=== PATIENT | male | born 1990 | race Two or more races ===

== ENCOUNTER 2022-04-13 13:11 | Outpatient (CLI) | payer OTHER ==
[2022-04-13 13:47] VITALS: BP 130/90
--- NOTE | 2022-04-13 13:47 | SLEEP CARE CONSULTATION ---
Information from patient questionnaire entered by Nancy Mujica. I have reviewed and concur with the information entered by Nancy Mujica. This document represents the service I personally performed and the decisions made by me, Meredith Evans ARNP. History of Present Illness Service Date and Time: 04/13/2022 1311 Reason for Visit: New patient Chief Complaint: reports: Unrefreshed sleep, Snoring, Excessive daytime sleepiness, Observed pauses in breathing, Frequent awakenings at night Date of Onset: 4YRS Usual bedtime: 0900 Time it takes to fall asleep: 10MIN Snores at night: Yes Observed to quit breathing while asleep: Yes Sleeps alone due to snoring: No Number of times waking at night: 5 Reasons for waking at night: reports: Snoring, Other (UNKNOWN REASONS). denies: Choking, Gasping for air Toss, Turn, or Twitch while sleeping: Yes (his girlfriend tells him he moves a lot) Recalls having dreams: No Usually gets out of bed at: 0610; weekends 0800 Feels refreshed in the morning: No Morning headache: No Sleepy or fatigued during the day: Yes Ever fallen asleep while driving: No Takes day naps: No Dreams during day naps: No Prior sleep studies: No Additional HPI information: I had the pleasure of seeing LAW SILVERIO today regarding the possibility of him having a sleep disorder. His current complaints are snoring and observed pauses in breathing. He states his current girlfriend is telling him that he snores loudly and is stopping breathing when sleeping. He is waking himself up with the snoring as well. He tried to get tested 2 years ago [place] tested. His girlfriend has heard gasping or other noises coming from him as he sleeps. She tells him he moves a lot but he states mostly he wakes up on his back where he went to sleep. - Parasomnia Symptoms Ever been unable to move upon waking from sleep: No Walks in sleep: No Talks in sleep: No Ever acted out dreams in sleep: No Ever felt weak in the knees when startled or emotional: No Bothered by creepy, crawly, restless sensations in legs: No Problems with memory or concentration: Yes (both) Subjective Initial [place] Sleepiness Scale score: 13 (04/10/22) Past Medical History Past Medical History: reports: Other (LOW BACK PAIN ) Social History The patient's occupation is a AM. Patient is Single and lives in . Have you smoked in the past 12 months: Yes Cigarettes per day (20/pack): 20 (WEEKLY ) Years of smokin Quit date: 12/2021 Smoking Pack Years: 12.0 Alcohol use: Yes Alcohol amount and frequency: 2-3 DRINKS ONLY ON WEEKENDS Caffeine use: No Family History Family history of sleep disordered breathing: Yes Family Hx Sleep Apnea: Father: Snoring, Sleep apnea - Untreated Allergies and Home Medications Known drug allergies: No Drug allergies reviewed: Yes (NKDA) Home medication list reviewed: Yes Allergy and home medication list: Medications: Tizanidine, prn Review of Systems Weight gain over past 5 years: 25 Cardiovascular: denies: high blood pressure Gastrointestinal: denies: heartburn Neurological: denies: headaches, head trauma Psychiatric: denies: Attention Deficit Hyperactivity, anxiety, depression Ear/Nose/Throat: reports: wisdom teeth removed. denies: injury to nose, tonsillectomy Endocrine: denies: thyroid disease Musculoskeletal: reports: back pain Physical Exam Vital signs obtained and entered by: NANCY Almaraz MA Blood Pressure: 130/90 (LEFT ARM) Cuff size: regular Heart Rate: 73 O2 Saturation: 96 Height: 5 ft 9 in Weight: 260 lb 6.4 oz Weight change since last visit: Body Mass Index: 38.4 BMI Classification: Obese Neck circumference: 19 Mouth and throat: normal Soft palate: normal Hard palate: normal Uvula: normal Uvula visualization: 100% Mallampati Class I Tongue: enlarged in size with teeth kelly on lateral edges Tonsils: small Neck: normal w/o lymphadenopathy or thyromegaly Heart: regular rate and rhythm Lungs: clear bilaterally Impression and Plan 1. Suspected Obstructive Sleep Apnea-Hypopnea Syndrome, as suggested by a history of loud and irregular snoring, observed cessation of breath while a sleep, gasping or choking in sleep, frequent awakening during the night, unrefreshed sleep, cognitive impairment, and excessive daytime sleepiness. Narrow oropharynx and obesity are common predisposing factors for obstructive sleep apnea-hypopnea syndrome. I recommend proceeding to polysomnography to confirm the diagnosis and to assess severity. If the patient has significant sleep disordered breathing, a manual CPAP titration study will also be performed to find the optimal treatment pressure. I informed the patient of what the sleep studies involve and after some discussion, obtained agreement to proceed. The pathophysiology of obstructive sleep apnea-hypopnea syndrome was discussed with the patient and health risks of cardiovascular and cerebrovascular disease if not treated. Risks of drowsy driving discussed in detail and patient advised to avoid long distance driving and to puller through at the first sign of drowsiness. Patient agreed to plan. * Schedule polysomnography * Avoid long distance driving or driving when feeling sleepy. * Avoid alcohol, sedative and muscle relaxant around bedtime. * Attempt to lose weight. * Review instructions provided by trained office staff on how to prepare for the sleep study. * Return for follow-up after sleep study completed. Counseling Topics: Weight loss health impact Visit Type: In Office Time Spent with Patient (minutes): 30 Provider Statement: I spent 100% of the Face to Face Visit with the patient with greater than 50% spent counseling the patient and coordination of care.
== END 2022-04-13 13:12 | disposition home or self-care (01) ==
LOC: SC 13:11
PROVIDERS: ATTEND Nurse Practitioner Family
DX: R06.83 Snoring (principal); R06.81 Apnea, not elsewhere classified; G47.8 Other sleep disorders; R41.89 Other symptoms and signs involving cognitive functions and awareness; G47.10 Hypersomnia, unspecified; E66.9 Obesity, unspecified; Z68.38 Body mass index [BMI] 38.0-38.9, adult
CPT/HCPCS: 99203; 99212

== ENCOUNTER 2022-05-14 19:12 | Outpatient (CLI) | payer OTHER | END 2022-05-14 19:13 | disposition home or self-care (01) | LOC: SC 19:12 | PROVIDERS: ATTEND Nurse Practitioner Family | DX: G47.33 Obstructive sleep apnea (adult) (pediatric) (principal) | CPT/HCPCS: 95810 ==

== ENCOUNTER 2022-05-22 15:45 | Outpatient (CLI) | payer OTHER ==
[2022-05-22 16:21] VITALS: BP 136/82
--- NOTE | 2022-05-22 16:21 | SLEEP CARE CONSULTATION ---
Information from patient questionnaire entered by Evelyne Mujica. I have reviewed and concur with the information entered by Evelyne Mujica. This document represents the service I personally performed and the decisions made by , Meredith Evans ARNP. History of Present Illness Service Date and Time: 05/22/2022 1545 Initial [place] Sleepiness Scale score: 13 (04/10/22) Current [place] Sleepiness Scale score: 10 (05/22/22) Additional HPI information: LAW SILVERIO returns for follow up and results of the recently performed polysomnography. I explained the pathophysiology behind obstructive sleep apnea. We then spent quite a bit of time discussing different treatment options. For mild obstructive sleep apnea, surgery and oral appliance are alternatives to nasal CPAP therapy but in moderate or severe cases, nasal CPAP is the most effective and reliable treatment. Because apnea is primarily in supine position, then positional management therapy could be effective. Methods discussed such as positioning with pillows to prevent supine sleep. I reviewed the impact of weight changes on sleep apnea and strongly recommended losing weight. After some discussion, the patient opted to go with the nasal CPAP therapy. Nasal autoCPAP set at 4-15 cmH20 will be ordered with rationale explained. A manual titration study will be ordered if unable to find optimal pressure with office adjustments. I explained how CPAP machine works and what to expect when using the machine. Using CPAP every night in order to get used to it was emphasized. Patient advised to put CPAP mask on before getting into bed so as not to fall asleep without CPAP. To assist acclimation to CPAP use, it could also be used for a short time during day while reading or watching TV. The patient was instructed to call the CPAP supplier to discuss any mechanical problem that may occur. If the mask given is uncomfortable or is difficult to keep on through the night even with adjustment, contact the CPAP supplier as many will replace with another mask style if notified before 30 days. If snoring or perceives is not getting enough air or too much air from the machine, notify this office. Patient counseled not drink alcohol less than 4 hours before bedtime as it can increase snoring and apnea. Patient was cautioned about risks of drowsy driving until sleepiness symptoms resolve. Sleep Study - Results Type of Sleep Study: Polysomnography (COMPLETED 05/14/22) Prior sleep studies: No Polysomnography/Home Sleep Study results: IMPRESSION: The quality of the study is good. The patient had reduced sleep efficiency due to a prolonged awakening in the middle of the night. The sleep architecture was abnormal for sleep fragmentation and lack of REM sleep. Respiratory monitoring showed moderate obstructive sleep apnea- hypopnea (AHI = 17.9) associated with frequent arousals, oxyhemoglobin desaturation and mild hypoxia (aravind oxygen saturation of 80%). The respiratory events occurred mainly during darvin (supine AHI = 21.9; non-supine = 10.57). Snore was loud in intensity. There was no significant periodic leg movement of sleep. Cardiac rhythm was normal sinus rhythm without significant arrhythmia. No abnormal behavior (parasomnia) observed during the night. Allergies and Home Medications Drug allergies reviewed: Yes (NKDA) Home medication list reviewed: Yes (no changes) Review of Systems Review of systems same as previous: Yes (no changes) Physical Exam Vital signs obtained and entered by: EVELYNE Almaraz MA Blood Pressure: 136/82 (LEFT ARM) Cuff size: regular Heart Rate: 81 O2 Saturation: 96 Height: 5 ft 9 in Weight: 260 lb 6.4 oz Body Mass Index: 38.4 BMI Classification: Obese Impression and Plan 1. Obstructive Sleep Apnea-Hypopnea Syndrome, moderate, with lowest oxygen saturation of 80%. Obviously this is the cause of the patients symptoms of unrefreshed sleep, and excessive daytime sleepiness. As mentioned above, the patient will be started on nasal autoCPAP therapy with pressure set at 4-15 cmH2 O. Compliance guidelines also reviewed. A copy of compliance guidelines will be given for reference at check out. Because the apnea is more severe supine, I instructed to avoid sleeping supine using pillow positioning until able to start CPAP use. * Nasal auto CPAP therapy, pressure at 4-15 cm H2O. * Attempt to lose weight. * Avoid alcohol consumption near bedtime. * Avoid supine sleep until using CPAP. * The patient is again cautioned about driving until sleepiness completely resolves. * Return one month after CPAP obtained. I will assess response to therapy and compliance at that time. Counseling Topics: Weight loss health impact Visit Type: In Office Time Spent with Patient (minutes): 21 Provider Statement: I spent 100% of the Face to Face Visit with the patient with greater than 50% spent counseling the patient and coordination of care.
== END 2022-05-22 15:46 | disposition home or self-care (01) ==
LOC: SC 15:45
PROVIDERS: ATTEND Nurse Practitioner Family
DX: G47.33 Obstructive sleep apnea (adult) (pediatric) (principal); E66.9 Obesity, unspecified; Z68.38 Body mass index [BMI] 38.0-38.9, adult
CPT/HCPCS: 99212; 99213

== ENCOUNTER 2022-09-04 12:54 | Outpatient (CLI) | payer OTHER ==
--- NOTE | 2022-09-04 13:23 | Sleep Patient Instructions ---
Sleep Center Visit Summary - Patient Visit Information Reason for Visit: First compliance follow up for CPAP therapy - Patient Instructions Additional Instructions: You were here for follow up of CPAP therapy. You will be continue on CPAP therapy with pressure changed to 8-11 cmH2O. Please let us know if the pressure change is uncomfortable and we can make further adjustments of the pressure. You should follow up with sleep care in 1-2 months. You may contact us sooner for any questions or concerns. - Clinic Information Contact: [facility] [address] [place] [address] [email or web address] T: [phone]
[2022-09-04 13:27] VITALS: BP 132/90
--- NOTE | 2022-09-04 13:27 | SLEEP CARE CONSULTATION ---
Information from patient questionnaire entered by Evelyne Mujica. I have reviewed and concur with the information entered by Evelyne Mujica. This document represents the service I personally performed and the decisions made by me, Meredith Evans ARNP. History of Present Illness Service Date and Time: 09/04/2022 1254 Previous diagnosis: Moderate, Obstructive Sleep Apnea-Hypopnea Syndrome AHI: 17.9 (in 05/2022) Reason for follow up: first compliance Equipment type: CPAP (ResMed Airsense 11, s/u 05/2022) Equipment obtained from: Other ([facility], got initial supplies) Mask style: Full face Mask brand: Respironics ([place] View) Backup mask available: Yes (other mask) Last cushion change: 1 month Prior sleep studies: No Type of Sleep Study: Polysomnography (COMPLETED 05/14/22) HPI additional information: LAW SILVERIO was diagnosed to have moderate, AHI 17.9, obstructive sleep apnea-hypopnea syndrome and returned today for CPAP therapy first compliance follow-up. Sleep Study - Results Type of Sleep Study: Polysomnography (COMPLETED 05/14/22) Prior sleep studies: No CPAP Compliance Data - Data Reviewed with Patient Average duration of nightly device use: 2 hours 6 minutes Compliance rate %: 17 ( days used) Current pressure setting (cmH2O): 4-15 (median 7.8, avg 10.1, max 11.1) Average residual AHI: 1.6 Central apnea: 0.2 Obstructive apnea: 0.8 Average large leak: 4.4 lpm Subjective Missed days of use due to: reports: mask issues (unsure fit is good), other (takes off when sleeping sometimes) Patient concerns: reports: nasal congestion, dry mouth, nose, throat (just once when he ran out of water). denies: aerophagia, mask discomfort, air blowing in eyes, mask leak noise, condensation in mask/hose, epistaxis Observed to snore while using device: No Current pressure setting perceived as: too low On therapy, patient: reports: sleeping better, awakening more refreshed, being more awake and alert during the day, more rested overall. denies: drowsiness while driving Initial [place] Sleepiness Scale score: 13 (04/10/22) Current [place] Sleepiness Scale score: 9 (09/04/22) Allergies and Home Medications Known drug allergies: No Drug allergies reviewed: Yes Home medication list reviewed: Yes (no changes) Allergy and home medication list: Allergies No Known Drug Allergies Allergy (Verified 09/03/22 09:54) Review of Systems Review of systems same as previous: No (bunion surgery) Physical Exam Vital signs obtained and entered by: EVELYNE Almaraz MA Blood Pressure: 132/90 (LEFT ARM) Cuff size: long Heart Rate: 95 O2 Saturation: 95 Height: 5 ft 9 in Weight: 266 lb Body Mass Index: 39.2 BMI Classification: Obese Impression and Plan 1. Obstructive Sleep Apnea-Hypopnea Syndrome, moderate, with poor treatment compliance and good apnea control. On CPAP therapy, the patient has better sleep quality and is more rested overall. He is trying to use his CPAP more but will sometimes takes the mask on when sleeping. He has felt that the pressure is too low at onset of putting mask on. I will adjust his ramp starting pressure to 5 cmH2O. The patients pressure will be changed to autoCPAP 8-11 cmH20 to reflect pressure being used. Patient advised to contact me if pressure change is uncomfortable so that it can be adjusted. Goals for apnea control discussed. Patient's apnea severity and rationale for treatment to reduce apnea, improve sleep quality and reduce cardiovascular and cerebrovascular events was reviewed. 2. Obesity, unspecified. Currently patients BMI is 39.2. Obesity increases the risk of apnea, CPAP pressure requirements and overall health risks especially cardiovascular and diabetes. Thus patient is advised to lose weight. * Change auto CPAP pressure to 8-11 cmH2O * Notify me if snoring with mask or feeling that the pressure is too much or too little * Attempt to lose weight * Call this office if any problems using CPAP * Return for follow up in 1-2 months, or sooner if concerns arise Counseling Topics: Spare mask, Weight loss health impact Visit Type: In Office Time Spent with Patient (minutes): 23 Provider Statement: I spent 100% of the Face to Face Visit with the patient with greater than 50% spent counseling the patient and coordination of care.
== END 2022-09-04 12:55 | disposition home or self-care (01) ==
LOC: SC 12:54
PROVIDERS: ATTEND Nurse Practitioner Family
DX: G47.33 Obstructive sleep apnea (adult) (pediatric) (principal); E66.9 Obesity, unspecified; Z68.39 Body mass index [BMI] 39.0-39.9, adult
CPT/HCPCS: 99212; 99213